=== PATIENT | male | born 1980 | race Two or more races ===

== ENCOUNTER 2018-02-06 09:18 | Emergency (ER) | payer SELFPAY ==
[2018-02-06 09:33] VITALS: TEMP 97.8; BMI 19.3
--- NOTE | 2018-02-06 09:39 | PDOC ---
History of Present Illness - General Chief Complaint: Nausea/Vomiting Stated Complaint: VOMITNG History Source: Patient Exam Limitations: No Limitations - History of Present Illness Travel History: No Initial Comments: 02/06/18 09:32 HPI: This 37 yr old male presents to ER with c/o nausea, vomiting, and abd pain that began this morning. He denies drug, alcohol, or smoking although he smells like smoke. He states he's living with a friend but presents with many bags of personal belongings. He vomited with bile while interview. His color is pale and he denies any other ingestion of food today. He has never been here before. Denies fever, no bm for 24 hours. Chief Compliant: n, v, abd pain Pain location: diffuse all over abd. Abd is a small framed male Duration:since this AM Modifying factors:none Quality:severe Radiating:none Severity:several times while in ER Time:since 7 am PMH: denies any hx FH: Pt has not recently traveled outside the country in the last 30 days. Pt has not been in contact with people who have traveled out of the country, in contact with people who have been ill with fever, n, v, d. SH: smoking use: denies illicit drug use: denies alcohol use: denies employment/educational status:recently lost his job sexual history: PSH: denies Home med use noted on DEC Allergies:nka Immunizations: PCP: when he goes it's [address] Past History - Past Medical History Allergies/Adverse Reactions: Allergies Allergy/AdvReac Type Severity Reaction Status Date / Time No Known Allergies Allergy Verified 02/06/18 09:30 Review of Systems - Review of Systems Able to Perform ROS?: Yes Comments:: 02/06/18 11:33 General statement: Excessive vomiting, Hematology: neg history of bleeding/blood thinners Skin: Neg for lesions, rash, bruising. HEENT: Neg symptoms Respiratory: Neg SOB or difficulty in breathing Cardiac: Neg chest pain GI: + pain, n/v : Neg problems on voiding MS: Neg for joint pain/stiffness, no edema Neuro: Neg for LOC, weakness, Endocrine: Neg for excess thirst/hunger, cold/heat intolerance, excess sweating Allergies: Neg for allergies *Physical Exam - Physical Exam Comments: 02/06/18 11:34 General Appearance: This ill appearing 37 yr old male V/S: hemodynamically stable, afebrile Skin: WNL of pt's skin color, no signs of pallor, mottling, cyanosis Head:symmetrical Eyes: EOM's intact, PERRLA Ears: denies pain Nose: patent Throat: lips, teeth, gums, tongue, buccal mucos pink and moist Lungs: Chest symmetry equal. Cap refill <3 seconds. Lung sounds clear Cardiac: PMI at R 4MCL space, pos S1 and S2, regular rate. Abdomen: flat, no organmegaly, tenderness throughout small size frame abd. : Not observed Muscularskeletal: Gait steady, ambulated in to ER, no edema +PMS Neuro: AAOx3, cognitively intact, speech clear and appropriate. ED Treatment Course - LABORATORY CBC & Chemistry Diagram: 02/06/18 10:00 02/06/18 10:00 Medical Decision Making - Medical Decision Making 02/06/18 10:43 Laboratory Tests 02/06/18 02/06/18 02/06/18 10:00 10:00 10:03 WBC 13.4 H Hgb 15.3 Hct 46.7 PT with INR 14.40 H INR 1.27 H Sodium 136 Potassium 3.6 Chloride 98 Carbon Dioxide 16 L Anion Gap 22 H BUN 19 H Creatinine 1.2 Random Glucose 140 H Calcium 9.7 Total Bilirubin 2.2 H Direct Bilirubin 0.4 H AST 21 ALT 13 Alkaline Phosphatase 119 H Total Protein 9.2 H Albumin 4.6 Lipase 56 L 02/06/18 11:35 Pt seen and examined initially He was vomiting upon arrival and noted to be mildly pale and dry. He says it's started at 7 am Plan -labs (cbc, cmp, lft, tox screen) -IVF -reglan and zofran labs reviewed and with increase T Bili, CT abd/pelv ordered. Continues to vomiting, IVF started again. CT pending. 02/06/18 12:[address] results of large fecal content without obstruction or biliary issues. Discussed with pt + macy and discussed possible cyclic vomiting from drug use. He understands. Vomiting under control and 2 L of IV given. Will discharge home *DC/Admit/Observation/Transfer Diagnosis at time of Disposition: Vomiting Qualifiers: Vomiting type: bilious vomiting Nausea presence: with nausea Qualified Code(s) : R11.14 - Bilious vomiting - Discharge Dispostion Disposition: HOME Condition at time of disposition: Stable Admit: No - Referrals - Patient Instructions Printed Discharge Instructions: DI for Vomiting -- Adult Additional Instructions: Discharge instructions 1. Please follow up with your primary physician within the next few days and explain that you have been seen here in the Emergency Room. 2. If you experience any worsening of symptoms, such as severe dehydration please return to the ER 3. Rest 4. Drink plenty of water, avoid the use of drugs as this may cause vomiting - Post Discharge Activity
[2018-02-06] MEDS ORDERED: SODIUM CHLORIDE 1,000 ML IV STA ×2 (09:44→12:17)
[2018-02-06] MEDS ORDERED: ONDANSETRON 4 MG/2 ML VIAL IVPUSH ONE ×2 (09:44→12:17)
[2018-02-06] MEDS ORDERED: METOCLOPRAMIDE HCL INJECTION 10 MG/2 ML VIAL IVPUSH ONE (09:46)
[2018-02-06] MEDS ORDERED: METOCLOPRAMIDE HCL INJECTION 10 MG/2 ML VIAL ONE (09:49)
[2018-02-06] MEDS ORDERED: ONDANSETRON 4 MG/2 ML VIAL ONE ×2 (09:50→12:21)
[2018-02-06 10:24] LABS: BASO % 0.5 % (0-2.0); EOS % 0.1 % (0-4.5); HEMATOCRIT 46.7 % (35.4-49); HEMOGLOBIN 15.3 GM/dL (11.7-16.9); LYMPH % 9.6 % (8-40); MCH 28.9 pg (25.7-33.7); MCHC 32.7 g/dl (32.0-35.9); MEAN CELL VOLUME 88.6 fl (80-96); MEAN PLT VOLUME 8.3 fl (7.5-11.1); MONO % 3.3 % (3.8-10.2); NEUT % 86.5 % (42.8-82.8); PLATELET COUNT 211 K/MM3 (134-434); RBC 5.27 M/mm3 (4.00-5.60); RDW 14.8 % (11.9-15.9); WHITE BLOOD COUNT 13.4 K/mm3 (4.0-10.0)
[2018-02-06 10:29] LABS: URINE APPEARANCE CLEAR; URINE BILIRUBIN NEGATIVE (<2.0 mg/dL); URINE BLOOD NEGATIVE (NEGATIVE); URINE COLOR LTYELLOW; URINE GLUCOSE (UA) NEGATIVE (NEGATIVE); URINE KETONE 2+ (NEGATIVE); URINE LEUK ESTERASE NEGATIVE (NEGATIVE); URINE NITRITE NEGATIVE (NEGATIVE); URINE UROBILINOGEN NEGATIVE mg/dL (0.2-1.0)
[2018-02-06 10:31] LABS: COCAINE, UR NEGATIVE ng/ml (CUTOFF=300); URINE AMPHETAMINES NEGATIVE ng/ml (CUTOFF=500); URINE BARBITURATES NEGATIVE ng/ml (CUTOFF=200); URINE BENZODIAZEPINES NEGATIVE ng/ml (CUTOFF=200)
[2018-02-06 10:32] LABS: METHADONE, UR NEGATIVE ng/ml (CUTOFF=300); OPIATES, URI NEGATIVE ng/ml (CUTOFF=300); PHENCYCLIDINE,URINE NEGATIVE ng/ml (CUTOFF=25)
[2018-02-06 10:34] LABS: INR 1.27 (0.82-1.09); PROTHROMBIN TIME (PATIENT) 14.4 SEC (9.98-11.88)
[2018-02-06 10:34] LABS: URINE PROTEIN 2+ (NEGATIVE)
[2018-02-06 10:35] LABS: EPI CELLS RARE /HPF (FEW); URINE MUCUS RARE
[2018-02-06 10:39] LABS: ALBUMIN 4.6 g/dl (3.4-5.0); ALK PHOS 119 U/L (45-117); ANION GAP 22 (8-16); BILIRUBIN,DIRECT 0.4 mg/dL (0.0-0.2); BILIRUBIN,TOTAL 2.2 mg/dL (0.2-1.0); BLOOD UREA NITROGEN 19 mg/dL (7-18); CALCIUM 9.7 mg/dL (8.5-10.1); CHLORIDE 98 mmol/L (98-107); CO2 16 mmol/L (21-32); CREATININE 1.2 mg/dL (0.7-1.3); GLUCOSE,RANDOM 140 mg/dL (74-106); LIPASE 56 U/L (73-393); POTASSIUM 3.6 mmol/L (3.5-5.1); SGOT/AST 21 U/L (15-37); SGPT/ALT 13 U/L (12-78); SODIUM 136 mmol/L (136-145); TOT PROT 9.2 g/dl (6.4-8.2)
[2018-02-06 12:51] VITALS: BP 120/74; PULSE 74
== END 2018-02-06 13:29 | disposition home or self-care (01) ==
LOC: JER 09:18
PROC: 3E033GC Introduction of Other Therapeutic Substance into Peripheral Vein, Percutaneous Approach (ICD-10-PCS; principal; 2018-02-06)
PROC: 3E033GC Introduction of Other Therapeutic Substance into Peripheral Vein, Percutaneous Approach (ICD-10-PCS; 2018-02-06)
PROC: 3E033GC Introduction of Other Therapeutic Substance into Peripheral Vein, Percutaneous Approach (ICD-10-PCS; 2018-02-06)
DX: R11.2 Nausea with vomiting, unspecified (principal)
CPT/HCPCS: 36415; 74177-TC; 80053; 80076; 80307; 81003; 81015; 83690; 85025; 85610; 99284-25; J7030